=== PATIENT | female | born 1960 | race Caucasian/White ===

== ENCOUNTER → 2016-06-20 | Outpatient (CLI) | payer OTHER ==
[2016-06-20 14:11] LABS: AUTOMATED NEUTROPHIL # 3.4 TH/MM3 (1.8-7.7); BASOPHIL % 0.3 % (0.0-2.0); EOSINOPHIL % 0.6 % (0.0-4.0); HEMATOCRIT 44.2 % (35.0-46.0); HEMO FLAGS DIFF FINAL; LYMPHOCYTE # 2.4 TH/MM3 (1.0-4.8); MEAN CELL VOLUME 84.9 FL (80.0-100.0); MEAN CORPUSCULAR HEMOGLOBIN 28.7 PG (27.0-34.0); MEAN CORPUSCULAR HGB CONC 33.8 % (32.0-36.0); NEUT % 53.1 % (16.0-70.0); PLATELET COUNT 262 TH/MM3 (150-450); RED BLOOD COUNT 5.21 MIL/MM3 (4.00-5.30); RED CELL DISTRIBUTION WIDTH 13.5 % (11.6-17.2); WHITE BLOOD COUNT 6.4 TH/MM3 (4.0-11.0)
[2016-06-20 14:13] LABS: BLOOD, URINE NEG (NEG); COMMENT (UR) CULT NOT INDICATED; CULTURE IF INDICATED CULT NOT INDICATED; GLUCOSE,URINE NEG (NEG); KETONE, URINE NEG (NEG); NITRITE,URINE NEG (NEG); SQUAMOUS EPITHELIAL CELL URINE <1 /hpf (0-5); URINE COLOR LIGHT-YELLOW (YELLW/STRAW)
[2016-06-20 14:32] LABS: ANION GAP 7 MEQ/L (5-15); AST (GOT) 25 U/L (15-37); BICARBONATE 33.5 MEQ/L (21.0-32.0); BLOOD UREA NITROGEN 17 MG/DL (7-18); CHLORIDE 102 MEQ/L (98-107); GLOMERULAR FILTRATION RATE 71 ML/MIN (>89); GLUCOSE,FASTING 97 MG/DL (74-99); POTASSIUM 4.3 MEQ/L (3.5-5.1); SODIUM (NA) 142 MEQ/L (136-145)
[2016-06-20 14:34] LABS: ALKALINE PHOSPHATASE 77 U/L (45-117); ALT (GPT) 30 U/L (10-53); TOTAL BILIRUBIN ADULT 0.2 MG/DL (0.2-1.0)
--- NOTE | 2016-06-20 15:34 | EKG ---
Date Performed: 06/20/2016 Time Performed: 14:00:14 PTAGE: 55 years EKG: Sinus rhythm NORMAL ECG NO PREVIOUS TRACING DOCTOR: Frankie Reyez Interpretating Date/Time 06/20/2016 15:32:35
== END ==
LOC: CPRE 13:36
PROVIDERS: ATTEND Obstetrics & Gynecology Gynecology
DX: Z01.810 Encounter for preprocedural cardiovascular examination (principal); Z01.812 Encounter for preprocedural laboratory examination; N39.3 Stress incontinence (female) (male); N81.2 Incomplete uterovaginal prolapse
CPT/HCPCS: 36415; 80053; 81001; 85025; 93005

== ENCOUNTER → 2016-06-26 | Day surgery (SDC) | payer OTHER ==
--- NOTE | 2016-06-20 14:26 | MH ---
cc: YARED TYLER MD DATE OF ADMISSION: 06/26/2016 1959 REASON FOR ADMISSION Scheduled for admission on June 26 for transobturator sling, anterior posterior repair. HISTORY OF PRESENT ILLNESS Patient is a 55-year-old female, 3, para 3, who is status post prior hysterectomy. She has had issues with stress and urge incontinence. She has had a urodynamic study that shows leak point at 72 ccs with a total capacity of 222, also has some issues with detrusor instability. She has failed medicinal therapy and wants to proceed with treatment for stress incontinence with a sling. She also has some degree of pelvic organ prolapse with anterior and posterior compartment, stage II and perineal body reduced to one. PAST MEDICAL HISTORY The patient's medical history is negative for heart, lung, liver disease, hypertension, diabetes, stroke. PAST SURGICAL HISTORY Hysterectomy for benign condition. GYNECOLOGIC HISTORY No STDs or abnormal Pap smears. OBSTETRICAL HISTORY Three vaginal deliveries. SOCIAL HISTORY She does not smoke, use alcohol or drugs. She has good social support. FAMILY HISTORY Noncontributory. ALLERGIES None. MEDICATIONS None. REVIEW OF SYSTEMS As above. No chest pain, orthopnea, PND. No nausea, vomiting, chills. No vaginal bleeding or discharge. Stress incontinence as above. She has nocturia, also has pressure and bulging sensation in the vagina. The remainder of 14-point review negative. PHYSICAL EXAMINATION VITAL SIGNS: On exam she is afebrile. Vital signs stable. Blood pressure is 120/70, height is 5 feet 3 inches, weight 185, BMI is 33. GENERAL: Patient is alert and oriented, in no acute distress. No sign of cognitive dysfunction or depression. HEENT: Within normal limits. NECK: Supple. No JVD. CHEST: Clear. HEART: Regular rate and rhythm. NECK: Soft, nontender. No hepatosplenomegaly. No CVA tenderness. PELVIC: In the office we note POP-Q score: Aa is -1, Ap is -1. Point C is -8. Perineal body is 1. Further exam under anesthesia. We did note hypermobility and demonstrated stress incontinence with cough. She had no significant postvoid residual. EXTREMITIES: Warm. SKIN: Within rashes. NEURO: Nonfocal. No DVT signs. ASSESSMENT Patient with stress urinary continence and urge component with detrusor instability and leak point pressure at one-third her total capacity. We discussed options for management and treatment. She is aware of the risks, benefits and alternatives to the planned procedure including damage to surrounding organs, bleeding, infection, failure of repair, also issues regarding sling complications, dyspareunia, erosion and infection are discussed. She is also aware that the sling may exacerbate her urge incontinence issues. The patient has diminution of perineal body and posterior compartment prolapse. At this point she wants to proceed with repair. She is aware of the risks, benefits and alternatives to the planned procedure including damage to surrounding organs, bleeding, infection, dyspareunia and failure of repair. She has made informed choice to proceed. We anticipate outpatient procedure. She will use DVT prophylaxis with sequential compression device and Ancef 2 grams IV for antibiotic prophylaxis. MD KATHRYN Connolly/AFSANEH /1:34 PM /2:04 PM
[~2016-06-26] VITALS: Ht 160 cm; Wt 84.1 kg
[~2016-06-26] MED LIST: CHLORHEXIDINE GLUCONATE 2 % 1 PACK (2 CLOTHS) TOPICAL PRN; ESTROGENS CONJUGATED VAG CREA 15 APPL/30 GM TUBE ONE; FAMOTIDINE 20 MG/2 ML VIAL ONE; FLUORESCEIN SOD 10% SOLN 500 MG/5 ML AMP ONE; INSULIN HUMAN REGULAR 1,000 UNITS/10 ML VIAL SQ PRN; KETOROLAC TROMETHAMINE 10 MG TAB PO PRN; KETOROLAC TROMETHAMINE 30 MG/ML (IVP) VIAL IV PUSH PRN; KETOROLAC TROMETHAMINE 60 MG/2 ML (IM) VIAL IM ONE; LACTATED RINGER'S 1000 ML IV PRN; LIDOCAINE 1%/EPINEPHrine 1:100,000 SOLN 50 ML VIAL ONE; METHYLENE BLUE 10 MG/ML VIAL OTHER ONE; METOPROLOL TARTRATE 25 MG TAB PO PRN; MIDAZOLAM HCL 2 MG/2 ML VIAL ONE; ONDANSETRON HCL 4 MG/2 ML VIAL IV PUSH ONE; ONDANSETRON HCL 4 MG/2 ML VIAL IV PUSH PRN; POVIDONE IODINE 5% (ANTISEPSIS KIT) 4 APPLICATIONS EACH NARE PRN; PROPOFOL 200 MG/20 ML AMP IV ONE; SODIUM CHLORID 0.9% 500 ML IV PRN; ceFAZolin 2 GM PREMIX 50 ML IV SCH; ePHEDrine/NS 25 MG/5 ML SYR IV ONE
[2016-06-26 08:07] VITALS: BP 130/82; PULSE 73; RESP 16; TEMP 98.2; O2SAT 96
--- NOTE | 2016-06-26 12:08 | MP ---
cc: YARED TYLER MD DATE OF SURGERY 06/26/2016 PREOPERATIVE DIAGNOSES 1. Stress urinary continence 2. Cystocele stage II 3. Rectocele stage II 4. Loss of perineal body POSTOPERATIVE DIAGNOSES 1. Stress urinary continence 2. Cystocele stage II 3. Rectocele stage II 4. Loss of perineal body 5. Loss of external sphincter from 11 to 2 o'clock. PROCEDURE 1. Transobturator tape Desara polypropylene sling manufactured by [employer] 2. Anterior/posterior repair with enterocele repair. 3. Perineoplasty 4. External sphincteroplasty 5. Diagnostic cystoscopy ANESTHESIA Laryngeal mask BLOOD LOSS 50 cc FLUIDS 1000 cc crystalloid [employer] staff x2 FINDINGS External genitalia poorly estrogenized, Pop Q score: Aa is 0, Ap is 0. Point C is -8. Total vaginal length is 8. Genital hiatus is 8. Perineal body is 1, loss of external sphincter from 11-2 o'clock. Rectal exam unremarkable otherwise. Following repair, Aa is -3, Ap is -3. Point C is -8. Total vaginal length is 8. Genital hiatus is 5. Perineal body is 5. Rectal exam normal. Cystoscopy shows normal trigone, good coaptation of urethra. Ureteral orifices patent x2. Dome and base of the bladder normal. SPECIMENS None COMPLICATIONS None DISPOSITION To Recovery Room stable. COUNTS Needle and sponge counts correct. DRAINS Castro catheter PROPHYLAXIS Antibiotic prophylaxis Ancef 2 grams daily. DVT prophylaxis sequential compression device. Time-out procedure per protocol. SUMMARY OF INDICATION FOR PROCEDURE Patient with three separate issues, stress incontinence, pelvic organ prolapse anterior and posterior compartment and loss of perineal body. The patient was taken to the operating theater, identified, prepped and draped in a fashion appropriate for the planned procedure. She was in the dorsolithotomy position with careful attention paid to placement of legs in stirrups to avoid undue stress to sensitive neurovascular structures. Above findings noted. Neurovascular integrity documented. Castro catheter was placed. Methylene blue was instilled into the bladder The anterior compartment was infiltrated with epinephrine/lidocaine solution. A midline incision was made from the vaginal apex to approximately 1 cm from the urethral meatus. There was redundant tissue approximately 2 cm from the meatus which was suspicious for diverticula, but with cystoscopy, there was no sign of any diverticula this is his redundant vaginal mucosa. The obturator foramen were identified on each side, infiltrated with epinephrine/lidocaine solution. After mobilization of the urethra, we then placed a C-hook from a lateral to medial position and a polypropylene tape was placed in the mid urethra in a position consistent with the mid urethra. A scalpel handle was used as a spacer. Anterior repair completed and vaginal cuffs were closed with a running 2-0 Vicryl suture. Hemostatic matrix was used to obviate the need for packing. There still remains a significant posterior compartment defect and loss of perineal body. Epinephrine/Lidocaine solution was infiltrated in the posterior compartment and a midline incision from the hymen to the apex, reflected the rectal tissues, performed enterocele repair and rectocele repair in standard fashion with delayed absorbable suture. The vaginal mucosa was trimmed and then the vaginal mucosa was closed with a running Vicryl suture in running locking fashion. Hemostatic matrix was used to obviate the need for packing. The patient still had significant diminution of perineal body. Perineorrhaphy was performed in standard fashion and an end-to-end sphincteroplasty was performed using delayed absorbable suture. This gave us an improved sphincter complex and also helped to buttress the perineal body. Rectal exam following showed good tone and no sign of any suture within the rectum. Suture line inspected, found to be intact. Vaginal depth was adequate at about 8 cm. The general hiatus had been close down from 8 cm to about 5 cm. Procedure was concluded. Patient reversed from anesthesia and take to Recovery Room in stable condition. MD KATHRYN Connolly/RAFAEL /11:29 AM /11:52 AM
[2016-06-26 12:55] VITALS: BP 119/75; PULSE 86; RESP 18; TEMP 98; O2SAT 96
== END | disposition home or self-care (01) ==
LOC: HSDC 07:18 → EDUNIT# 10:00
PROVIDERS: ATTEND Obstetrics & Gynecology Gynecology
DX: N39.46 Mixed incontinence (principal); N81.10 Cystocele, unspecified; N81.6 Rectocele; Z90.710 Acquired absence of both cervix and uterus
CPT/HCPCS: 00942; 57265; 57288; C1771; J0690; J1885; J2250; J2405; J3010; J7120